=== PATIENT | female | born 1950 | race Caucasian/White ===

== ENCOUNTER 2019-03-17 21:43 | Emergency (ER) | payer OTHER ==
[~2019-03-17] VITALS: Ht 167.6 cm; Wt 68.0 kg
[2019-03-17] MEDS ORDERED: ESTR1GEL TD (22:06)
[2019-03-17] MEDS ORDERED: LANS30CA54 PO (22:06)
[2019-03-17] MEDS ORDERED: LEVO100T PO (22:06)
[2019-03-17] MEDS ORDERED: OXYC-128 PO (22:06)
[2019-03-17] MEDS ORDERED: FLUO5DRO3 OP (22:06)
[2019-03-17] MEDS ORDERED: ASPI-618 PO (22:06)
[2019-03-17] MEDS ORDERED: ALBU8HFA4 INH (22:06)
[2019-03-17] MEDS ORDERED: CLON0.5T PO (22:06)
[2019-03-17] MEDS ORDERED: CARB1TAB21 PO (22:06)
[2019-03-17] MEDS ORDERED: AMLO2.5T2 PO (22:06)
[2019-03-17] MEDS ORDERED: LEVO42CA2 INH (22:06)
[2019-03-17] MEDS ORDERED: ROTI1PAT7 TD (22:06)
[2019-03-17] MEDS ORDERED: ONDA4TAB5 PO (22:06)
[2019-03-17] MEDS ORDERED: DOCU-286 PO (22:06)
[2019-03-17] MEDS ORDERED: CEPH250C PO (22:06)
--- NOTE | 2019-03-17 22:06 | NUR ---
Dr. Mcrae at bedside for MSE
[2019-03-17] MEDS ORDERED: ALBUTEROL SULFATE 2.5 MG/3 ML NEBU NEB ONE (22:15)
[2019-03-17] MEDS ORDERED: IPRATROPIUM BROMIDE 0.5 MG/2.5 ML NEBU NEB ONE (22:15)
[2019-03-17] MEDS ORDERED: ALBUTEROL SULFATE 2.5 MG/3 ML NEBU ONE (22:18)
[2019-03-17] MEDS ORDERED: IPRATROPIUM BROMIDE 0.5 MG/2.5 ML NEBU ONE (22:18)
[2019-03-17 23:19] LABS: BASOPHILS % (AUTO) 0.4 % (0.0-2.0); EOSINOPHILS # (AUTO) 0.1 K/uL (0.0-0.7); HEMATOCRIT 35.3 % (31.2-41.9); HEMOGLOBIN 11.7 g/dL (10.9-14.3); LYMPHOCYTES # (AUTO) 0.8 K/uL (20.0-40.0); LYMPHOCYTES % (AUTO) 13.7 % (20.5-51.5); MEAN CORPUSCULAR HEMOGLOBIN 28.7 uug (24.7-32.8); MEAN CORPUSCULAR HGB CONC 33 g/dL (32.3-35.6); MEAN CORPUSCULAR VOLUME 86.7 fL (75.5-95.3); MONOCYTES # (AUTO) 0.4 K/uL (2.0-10.0); NEUTROPHILS # (AUTO) 4.8 K/uL (1.8-8.9); NEUTROPHILS % (AUTO) 77.9 % (38.5-71.5); PLATELET COUNT (AUTO) 251 K/uL (179-408); RED BLOOD CELL COUNT(AUTO) 4.07 MIL/uL (3.63-4.92); WHITE BLOOD COUNT (AUTO) 6.2 K/uL (3.8-11.8)
[2019-03-17 23:28] LABS: CREATININE 0.8 mg/dL (0.6-1.3); POTASSIUM 3.6 mmol/L (3.5-5.1)
[2019-03-17 23:40] LABS: BILIRUBIN,DIRECT 0.1 mg/dL (0.0-0.2); BILIRUBIN,TOTAL 0.4 mg/dL (0.2-1.0); TOTAL PROTEIN, SERUM 7.3 g/dL (6.4-8.2)
--- NOTE | 2019-03-18 00:05 | NUR ---
Patient in bed resting with family at bedside. Breathing even and unlabored. Denies any SOB. O2 sat at 95% on RA. NAD noted
[2019-03-18] MEDS ORDERED: ALBUTEROL SULFATE 2.5 MG/3 ML NEBU NEB ONE (00:15)
[2019-03-18] MEDS ORDERED: IPRATROPIUM BROMIDE 0.5 MG/2.5 ML NEBU NEB ONE (00:15)
[2019-03-18] MEDS ORDERED: predniSONE 20 MG TABLET PO ONE (00:15)
[2019-03-18] MEDS ORDERED: predniSONE 50 MG TABLET ONE (00:19)
[2019-03-18] MEDS ORDERED: predniSONE 10 MG TABLET ONE (00:19)
[2019-03-18] MEDS ORDERED: IPRATROPIUM BROMIDE 0.5 MG/2.5 ML NEBU ONE (00:24)
[2019-03-18] MEDS ORDERED: ALBUTEROL SULFATE 2.5 MG/3 ML NEBU ONE (00:24)
--- NOTE | 2019-03-18 01:13 | NUR ---
IV removed. Catheter intact and site benign. Pressure and 4x4 gauze applied to site. No bleeding noted. Patient discharged to home in stable conditon. Written and verbal after care instructions given. Patient verbalizes understanding of instructions. pt ambulating with steady gait
[2019-03-18 01:15] VITALS: BP 135/87
== END 2019-03-18 01:09 | disposition home or self-care (01) ==
LOC: ER 21:46
DX: J98.01 Acute bronchospasm (principal); K21.9 Gastro-esophageal reflux disease without esophagitis; I10 Essential (primary) hypertension; Z79.899 Other long term (current) drug therapy; Z79.82 Long term (current) use of aspirin
CPT/HCPCS: 36415; 71045; 80048; 80076; 83880; 84484; 85025; 93005; 94640 ×2; 99284; J7512 ×2; 70030-TC; A4663; J3590